=== PATIENT | female | born 1950 | race Caucasian/White ===

== ENCOUNTER 2018-03-21 11:24 | Inpatient (IN) | payer MEDICARE ==
[~2018-03-21] VITALS: Ht 167.6 cm; Wt 101.7 kg
[2018-03-21] MEDS ORDERED: SODIUM CHLORIDE 0.9% 3,000 ML IV ONE (11:45)
[2018-03-21 11:47] LABS: Basophils # (auto) 0 uL; Basophils % (auto) 0.2 % (0.0-2.0); Eosinophils # (auto) 0 uL; Eosinophils % (auto) 0.2 % (0.0-7.0); Hematocrit 45.8 % (36.0-46.0); Hemoglobin 15.2 g/dL (12.2-16.2); Lymphocytes # (auto) 0.5 uL; Lymphocytes % (auto) 5.6 % (10.0-50.0); Mean Corpuscular Hemoglobin 29.4 pg (28.0-32.0); Mean Corpuscular Hgb Conc. 33.2 g/dL (32.0-36.0); Mean Corpuscular Volume 88.6 fL (80.0-100.0); Monocytes # (auto) 0.1 uL; Neutrophils # (auto) 8.4 uL; Nucleated Red Blood Cells % 0.1 %; Platelet Count (auto) 160 10^3/uL (140-450); Red Blood Cells 5.17 10^6/uL (4.0-5.20); Red Cell Distribution Width 13.4 % (11.8-14.3)
[2018-03-21 11:59] LABS: INR 1.01 (0.9-1.15); Partial Thromboplastin Time 23.1 sec (23.78-33.04); Prothrombin Time 10.8 sec (9.27-12.13)
[2018-03-21 12:07] LABS: Alanine Aminotransferase 55 U/L (13-56); Albumin 3.5 g/dL (3.4-5.0); Alkaline Phosphatase 51 U/L (45-117); Anion Gap 11 (5-15); Aspartate Aminotransferase 56 U/L (15-37); BUN/Creatinine Ratio 21.6; Bilirubin, Total 0.5 mg/dL (0.2-1.0); Blood Urea Nitrogen 22 mg/dL (7-18); Calcium 8.3 mg/dL (8.5-10.1); Carbon Dioxide 18 mmol/L (21-32); Chloride 108 mmol/L (98-107); GFR African American 69 mL/min; GFR Non-African American 57 mL/min; Glucose 208 mg/dL (74-106); Magnesium 2.1 mg/dL (1.6-2.6); Potassium 3.6 mmol/L (3.5-5.1); Sodium 137 mmol/L (136-145); Total Protein 6.8 g/dL (6.4-8.2)
[2018-03-21 12:14] LABS: Amylase 50 U/L (25-115); Lipase 289 U/L (73-393)
[2018-03-21] MEDS ORDERED: ONDANSETRON HCL 4 MG/2 ML VIAL IV ONE (13:15)
[2018-03-21] MEDS ORDERED: FUROSEMIDE 40 MG/4 ML VIAL IV ONE (14:30)
[2018-03-21 14:45] LABS: Lactic Acid w/Reflex 3.7 mmol/L (0.4-2.0)
[2018-03-21 16:22] LABS: Urine Amorphous Crystal FEW /hpf (None Seen); Urine Bacteria NONE SEEN /hpf (None Seen); Urine Blood Negative /uL (Negative); Urine Mucus FEW (None Seen); Urine Specific Gravity 1.017 (1.001-1.035); Urine WBC 1 /hpf (0 - 5)
[2018-03-21 16:42] LABS: Alcohol, Urine < 3.0 mg/dL (0-5); Amphetamine Screen, Urine NEGATIVE (NEGATIVE); Barbiturate Scree,Urine NEGATIVE (NEGATIVE); Benzodiazephine Screen, Urine NEGATIVE (NEGATIVE); Cannabinoid Screen, Urine POSITIVE (NEGATIVE); Cocaine Screen, Urine NEGATIVE (NEGATIVE); Opiate Scree,Urine NEGATIVE (NEGATIVE); Phencyclidine Screen, Urine NEGATIVE (NEGATIVE)
[2018-03-21] MEDS ORDERED: HYDROcodone-ACET 5/325MG TAB PO PRN (17:45)
[2018-03-21] MEDS ORDERED: NITROGLYCERIN 0.4 MG SL TAB SL PRN (17:45)
[2018-03-21] MEDS ORDERED: ACETAMINOPHEN 325 MG TAB PO PRN (17:45)
[2018-03-21] MEDS ORDERED: MORPHINE SULF INJ 2 MG/ML SYRINGE 1ML IV PRN ×2 (17:45)
[2018-03-21] MEDS ORDERED: LEVETIRACETAM INJ 500 MG in D5W 5% 100 ML IV ONE (17:45)
[2018-03-21] MEDS ORDERED: VANCOMYCIN PER PHARMACY 0 MG IV SCH (17:45)
[2018-03-21] MEDS ORDERED: LORazepam 2MG/ML-1ML VIAL IV PRN (17:45)
[2018-03-21] MEDS ORDERED: DOCUSATE SOD 100 MG CAP PO PRN (17:45)
[2018-03-21] MEDS ORDERED: PIPERACILLIN-TAZOB 3.375GM 100 ML IV SCH (18:00)
[2018-03-21] MEDS ORDERED: ASPirin-EC 81 mg tab PO ONE (18:00)
[2018-03-21] MEDS: HCTZ 25 MG TAB PO SCH (18:15)
[2018-03-21] MEDS: VANCOMYCIN 1GM/250ML 250 ML IV SCH (18:15)
[2018-03-21] MEDS ORDERED: BENA20TA14 PO (18:42)
[2018-03-21] MEDS ORDERED: ATEN-60 PO (18:42)
[2018-03-21] MEDS ORDERED: LEVO50TA7 PO (18:42)
[2018-03-21] MEDS: ONDANSETRON HCL 4 MG/2 ML VIAL IV PRN (19:57)
[2018-03-21] MEDS: PIPERACILLIN-TAZOB 3.375GM 100 ML IV SCH (20:51)
[2018-03-21] MEDS: BENAZEPRIL HCL 10 MG TAB PO SCH (22:35)
[2018-03-21] MEDS: ATORVASTATIN 20 MG TAB PO SCH (22:35)
[2018-03-21] MEDS: LEVETIRACETAM 500 MG TAB PO SCH (22:35)
[2018-03-21] MEDS: FAMOTIDINE 20 MG TAB PO SCH (22:35)
[2018-03-21] MEDS: SODIUM CHLOR 0.9% PF (SALINE LOCK) 10ML VIAL/SYR IV SCH (22:36)
[2018-03-22] MEDS: PIPERACILLIN-TAZOB 3.375GM 100 ML IV SCH ×4 (03:05→20:04)
[2018-03-22] MEDS: ONDANSETRON HCL 4 MG/2 ML VIAL IV PRN ×2 (03:05→05:59)
[2018-03-22] MEDS ORDERED: ONDANSETRON HCL 4 MG/2 ML VIAL ONE (06:00)
[2018-03-22] MEDS: SODIUM CHLOR 0.9% PF (SALINE LOCK) 10ML VIAL/SYR IV SCH ×3 (06:05→21:41)
[2018-03-22] MEDS: HCTZ 25 MG TAB PO SCH ×2 (06:20→18:01)
[2018-03-22] MEDS: VANCOMYCIN 1GM/250ML 250 ML IV SCH ×2 (06:20→18:01)
[2018-03-22] MEDS: LEVOTHYROXINE SODIUM 25 MCG TAB PO SCH (06:21)
[2018-03-22 06:23] LABS: Basophils # (auto) 0.1 uL; Basophils % (auto) 0.7 % (0.0-2.0); Eosinophils # (auto) 0 uL; Eosinophils % (auto) 0.3 % (0.0-7.0); Hematocrit 42.1 % (36.0-46.0); Hemoglobin 14.8 g/dL (12.2-16.2); Lymphocytes # (auto) 1.2 uL; Lymphocytes % (auto) 12.6 % (10.0-50.0); Mean Corpuscular Hemoglobin 30.8 pg (28.0-32.0); Mean Corpuscular Hgb Conc. 35.3 g/dL (32.0-36.0); Mean Corpuscular Volume 87.4 fL (80.0-100.0); Monocytes # (auto) 0.5 uL; Monocytes % (auto) 4.7 % (0.0-12.0); Neutrophils % (auto) 81.7 % (37.0-80.0); Nucleated Red Blood Cells % 0.1 %; Platelet Count (auto) 157 10^3/uL (140-450); Red Blood Cells 4.81 10^6/uL (4.0-5.20); White Blood Cell 9.8 10^3/uL (4.4-10.8)
[2018-03-22 06:39] LABS: Albumin 3.5 g/dL (3.4-5.0); BUN/Creatinine Ratio 17.9; Calcium 8.2 mg/dL (8.5-10.1)
[2018-03-22 06:42] LABS: Bilirubin, Total 1.2 mg/dL (0.2-1.0); Total Protein 6.7 g/dL (6.4-8.2)
[2018-03-22 06:43] LABS: Potassium 2.7 mmol/L (3.5-5.1)
[2018-03-22] MEDS ORDERED: POTASSIUM CHL 20 Meq TABLET PO ONE (07:00)
[2018-03-22] MEDS: MULTIPLE VITAMIN TAB PO SCH (08:26)
[2018-03-22] MEDS: ASPirin-EC 81 mg tab PO SCH (08:26)
[2018-03-22] MEDS: FAMOTIDINE 20 MG TAB PO SCH ×2 (08:27→21:42)
[2018-03-22] MEDS: LEVETIRACETAM 500 MG TAB PO SCH (08:27)
[2018-03-22] MEDS: ATENOLOL 25 MG TAB PO SCH (08:27)
[2018-03-22] MEDS: BENAZEPRIL HCL 10 MG TAB PO SCH ×2 (08:38→21:42)
[2018-03-22 13:18] VITALS: BP 123/60
[2018-03-22 13:50] VITALS: BP 123/60
[2018-03-22 17:00] VITALS: BP 122/88
[2018-03-22 18:22] VITALS: BP 123/60
[2018-03-22 18:27] LABS: BUN/Creatinine Ratio 10.2; Calcium 9.1 mg/dL (8.5-10.1); Potassium 3.1 mmol/L (3.5-5.1)
[2018-03-22] MEDS ORDERED: LORazepam 2MG/ML-1ML VIAL IV PRN ×2 (20:00)
[2018-03-22] MEDS: ATORVASTATIN 20 MG TAB PO SCH (21:42)
[2018-03-22 22:00] VITALS: BP 159/88
[2018-03-23] MEDS: PIPERACILLIN-TAZOB 3.375GM 100 ML IV SCH ×4 (02:06→19:41)
[2018-03-23 05:00] VITALS: BP 139/90
[2018-03-23] MEDS: HCTZ 25 MG TAB PO SCH ×2 (06:01→18:01)
[2018-03-23] MEDS: SODIUM CHLOR 0.9% PF (SALINE LOCK) 10ML VIAL/SYR IV SCH ×3 (06:01→21:14)
[2018-03-23] MEDS: LEVOTHYROXINE SODIUM 25 MCG TAB PO SCH (06:02)
[2018-03-23 06:09] LABS: Basophils # (auto) 0.1 uL; Basophils % (auto) 1.3 % (0.0-2.0); Eosinophils # (auto) 0.1 uL; Eosinophils % (auto) 1.7 % (0.0-7.0); Hematocrit 42.1 % (36.0-46.0); Hemoglobin 14.7 g/dL (12.2-16.2); Lymphocytes # (auto) 1.4 uL; Lymphocytes % (auto) 21.4 % (10.0-50.0); Mean Corpuscular Hemoglobin 30.6 pg (28.0-32.0); Mean Corpuscular Hgb Conc. 34.8 g/dL (32.0-36.0); Monocytes # (auto) 0.3 uL; Monocytes % (auto) 4.5 % (0.0-12.0); Neutrophils # (auto) 4.7 uL; Neutrophils % (auto) 71.1 % (37.0-80.0); Nucleated Red Blood Cells % 0.1 %; Platelet Count (auto) 147 10^3/uL (140-450); Red Blood Cells 4.79 10^6/uL (4.0-5.20); White Blood Cell 6.6 10^3/uL (4.4-10.8)
[2018-03-23] MEDS: VANCOMYCIN 1GM/250ML 250 ML IV SCH ×3 (06:44→21:45)
[2018-03-23 06:50] LABS: BUN/Creatinine Ratio 14.5; Calcium 8.7 mg/dL (8.5-10.1); Potassium 3.1 mmol/L (3.5-5.1)
[2018-03-23 09:00] VITALS: BP 127/80
[2018-03-23] MEDS ORDERED: POTASSIUM EFFERVESENT TAB 25 MEQ PO ONE (09:45)
[2018-03-23] MEDS: ATENOLOL 25 MG TAB PO SCH (10:00)
[2018-03-23] MEDS: ASPirin-EC 81 mg tab PO SCH (10:21)
[2018-03-23] MEDS: MULTIPLE VITAMIN TAB PO SCH (10:21)
[2018-03-23] MEDS: FAMOTIDINE 20 MG TAB PO SCH ×2 (10:22→21:16)
[2018-03-23] MEDS: BENAZEPRIL HCL 10 MG TAB PO SCH ×2 (10:23→21:15)
[2018-03-23 13:00] VITALS: BP 170/61
[2018-03-23 13:40] VITALS: BP 138/94
[2018-03-23 17:00] VITALS: BP 127/77
[2018-03-23] MEDS: ATORVASTATIN 20 MG TAB PO SCH (21:15)
[2018-03-23 21:59] VITALS: BP 134/81
[2018-03-24] MEDS: PIPERACILLIN-TAZOB 3.375GM 100 ML IV SCH ×3 (02:11→14:00)
[2018-03-24 05:00] VITALS: BP 138/77
[2018-03-24] MEDS: SODIUM CHLOR 0.9% PF (SALINE LOCK) 10ML VIAL/SYR IV SCH ×2 (05:21→14:00)
[2018-03-24 05:57] LABS: Basophils # (auto) 0.1 uL; Basophils % (auto) 1.8 % (0.0-2.0); Eosinophils # (auto) 0.2 uL; Eosinophils % (auto) 2.2 % (0.0-7.0); Hematocrit 44.6 % (36.0-46.0); Hemoglobin 15.5 g/dL (12.2-16.2); Lymphocytes # (auto) 1.3 uL; Mean Corpuscular Hemoglobin 30.6 pg (28.0-32.0); Mean Corpuscular Hgb Conc. 34.8 g/dL (32.0-36.0); Mean Corpuscular Volume 87.8 fL (80.0-100.0); Monocytes # (auto) 0.4 uL; Monocytes % (auto) 5.5 % (0.0-12.0); Neutrophils % (auto) 71.5 % (37.0-80.0); Nucleated Red Blood Cells % 0.1 %; Platelet Count (auto) 149 10^3/uL (140-450); Red Blood Cells 5.08 10^6/uL (4.0-5.20); Red Cell Distribution Width 12.9 % (11.8-14.3); White Blood Cell 6.9 10^3/uL (4.4-10.8)
[2018-03-24] MEDS: VANCOMYCIN 1GM/250ML 250 ML IV SCH (06:02)
[2018-03-24] MEDS: LEVOTHYROXINE SODIUM 25 MCG TAB PO SCH (06:03)
[2018-03-24] MEDS: HCTZ 25 MG TAB PO SCH (06:03)
[2018-03-24 06:38] LABS: Albumin 3.5 g/dL (3.4-5.0); Calcium 9.1 mg/dL (8.5-10.1); Potassium 3.3 mmol/L (3.5-5.1)
[2018-03-24 06:40] LABS: BUN/Creatinine Ratio 15.5; Total Protein 6.8 g/dL (6.4-8.2)
[2018-03-24 06:49] LABS: Bilirubin, Total 1.2 mg/dL (0.2-1.0)
[2018-03-24 09:00] VITALS: BP 135/80
[2018-03-24] MEDS: ASPirin-EC 81 mg tab PO SCH (09:34)
[2018-03-24] MEDS: FAMOTIDINE 20 MG TAB PO SCH (09:34)
[2018-03-24] MEDS: BENAZEPRIL HCL 10 MG TAB PO SCH (09:35)
[2018-03-24] MEDS: MULTIPLE VITAMIN TAB PO SCH (09:35)
[2018-03-24] MEDS: ATENOLOL 25 MG TAB PO SCH (09:35)
[2018-03-24] MEDS ORDERED: POTASSIUM EFFERVESENT TAB 25 MEQ PO ONE (10:15)
[2018-03-24 13:00] VITALS: BP 129/78
[2018-03-24] MEDS ORDERED: VANCOMYCIN 1,250 MG in D5W 5% 250 ML IV SCH (14:00)
== END 2018-03-24 15:47 | disposition home or self-care (01) | DRG 871 ==
LOC: EDUNIT# 11:24 → ER 11:24 → EDBD 11:24 → OVERFLOW 11:25 → TELE-WESTW 03-22 13:06
PROVIDERS: ADMIT Internal Medicine; ATTEND Internal Medicine
PROC: 5A09357 Assistance with Respiratory Ventilation, Less than 24 Consecutive Hours, Continuous Positive Airway Pressure (ICD-10-PCS; principal; 2018-03-22)
DX: A41.9 Sepsis, unspecified organism (principal); I50.33 Acute on chronic diastolic (congestive) heart failure; I46.9 Cardiac arrest, cause unspecified; J69.0 Pneumonitis due to inhalation of food and vomit; N39.0 Urinary tract infection, site not specified; E83.51 Hypocalcemia; N18.3 Chronic kidney disease, stage 3 (moderate); E11.22 Type 2 diabetes mellitus with diabetic chronic kidney disease; I13.10 Hypertensive heart and chronic kidney disease without heart failure, with stage 1 through stage 4 chronic kidney disease, or unspecified chronic kidney disease; E11.65 Type 2 diabetes mellitus with hyperglycemia; E66.9 Obesity, unspecified; E89.0 Postprocedural hypothyroidism; G40.409 Other generalized epilepsy and epileptic syndromes, not intractable, without status epilepticus; G47.10 Hypersomnia, unspecified; Z80.0 Family history of malignant neoplasm of digestive organs; Z80.8 Family history of malignant neoplasm of other organs or systems; Z90.710 Acquired absence of both cervix and uterus; Z98.49 Cataract extraction status, unspecified eye; Z68.36 Body mass index [BMI] 36.0-36.9, adult
CPT/HCPCS: 36415; 70450; 70551; 71045; 80048; 80053; 80202; 80307; 80320; 81001; 82150; 83605; 83690; 83735; 84484; 85025; 85610; 85730; 87040; 87086; 92610; 93005; 93306; 93886; 94660; 95819; 96361; 96374; 96375; G0378; J2405; J2543; J7060